=== PATIENT | male | born 1985 | race Caucasian/White ===

== ENCOUNTER 2024-07-06 09:43 | Outpatient (OUT) | payer MEDICARE, MEDICAID, SELFPAY ==
[2024-07-06 10:14] LABS: Basophils Absolute Auto 0.1 10^3/uL (0.0-0.1); Basophils Percent Auto 0.6 % (0.2-2.0); Eosinophils Absolute Auto 0.2 10^3/uL (0.0-0.7); Eosinophils Percent Auto 2.5 % (0.9-7.0); Hematocrit 50.7 % (42.0-54.0); Hemoglobin 18.1 g/dL (14.0-18.0); Immature Granulocytes Abs Auto 0.03 10^3/uL (0.00-0.03); Immature Granulocytes Pct Auto 0.4 % (0.0-0.5); Lymphocytes Absolute Auto 2.1 10^3/uL (1.2-3.8); Lymphocytes Percent Auto 26.8 % (20.5-60.0); Mean Corpuscular HGB Conc 35.7 g/dL (29.9-35.2); Mean Corpuscular Hemoglobin 31.3 pg (25.9-34.0); Mean Corpuscular Volume 87.6 fL (80.0-94.0); Mean Platelet Volume 11.5 fL (9.5-13.5); Monocytes Absolute Auto 0.7 10^3/uL (0.3-0.8); Monocytes Percent Auto 8.5 % (1.7-12.0); Neutrophils Absolute Auto 4.7 10^3/uL (1.4-6.5); Neutrophils Percent Auto 61.2 % (43.0-75.0); Platelet Count 231 10^3/uL (150-450); Red Blood Count 5.79 10^6/uL (4.70-6.10); Red Cell Distribution Width 12.4 % (11.0-15.0); White Blood Count 7.7 10^3/uL (4.0-11.0)
[2024-07-06 10:20] LABS: Bilirubin Urine NEGATIVE (NEGATIVE); Blood Urine NEGATIVE (NEGATIVE); Clarity Urine CLEAR (CLEAR); Color Urine LT. YELLOW (YELLOW); Glucose Urine UA >=1000 mg/dL (NEGATIVE); Ketones Urine TRACE mg/dL (NEGATIVE); Leukocyte Esterase Urine NEGATIVE (NEGATIVE); Nitrite Urine NEGATIVE (NEGATIVE); Protein Urine NEGATIVE (NEG/TRACE); Specific Gravity Urine <=1.005 (1.005-1.025); Urine Microscopic Indicated NO; Urobilinogen Urine 0.2 EU/dL (0.2-1.0); pH Urine 6.5 (5.0-9.0)
[2024-07-06 10:38] LABS: Creatinine Urine Random 56.89 mg/dL (20.00-300.00); Microalbum Creatinine Ratio Ur 133.5 mg/g (0.0-29.9); Microalbumin Urine Random 7.6 mg/dL (<=30.0)
[2024-07-07 10:44] LABS: Estimated Average Glucose >355 mg/dL; Glycohemoglobin A1C >14.0 % (4.5-6.2)
[2024-07-07 10:49] LABS: Anion Gap 12.4; BUN Creatinine Ratio 14.8; Bilirubin Total 0.7 mg/dL (0.2-1.0); Carbon Dioxide 26.4 mmol/L (21.0-32.0); Chloride 95 mmol/L (98-107); Estimated GFR (African America >60 (>=60); Estimated GFR (Non-African Ame >60 (>=60); Glucose 352 mg/dL (74-106); Potassium 3.8 mmol/L (3.5-5.1); Sodium 130 mmol/L (136-145)
[2024-07-07 10:50] LABS: Alanine Aminotransferase 71 U/L (16-63); Albumin Globulin Ratio 0.8; Albumin Level 3.4 g/dL (3.4-5.0); Alkaline Phosphatase 83 U/L (46-116); Aspartate Amino Transferase 27 U/L (15-37); Globulin 4.1 g/dL; Total Protein 7.5 g/dL (6.4-8.2)
== END 2024-07-06 09:44 | disposition home or self-care (01) ==
LOC: LAB 09:50
PROVIDERS: PCP Nurse Practitioner; Visit Provider Nurse Practitioner
DX: G47.33 Obstructive sleep apnea (adult) (pediatric) (principal); J45.40 Moderate persistent asthma, uncomplicated; R53.83 Other fatigue; I10 Essential (primary) hypertension; E11.9 Type 2 diabetes mellitus without complications; E78.1 Pure hyperglyceridemia
CPT/HCPCS: 36415; 80053; 81003; 82043; 82570; 83036; 84443; 85025

== ENCOUNTER 2024-12-25 11:12 | Outpatient (OUT) | payer MEDICARE, MEDICAID, SELFPAY ==
[2024-12-25 12:15] LABS: Alanine Aminotransferase 93 U/L (16-63); Albumin Globulin Ratio 0.9; Albumin Level 3.6 g/dL (3.4-5.0); Alkaline Phosphatase 73 U/L (46-116); Anion Gap 16.1; Aspartate Amino Transferase 45 U/L (15-37); BUN Creatinine Ratio 13.3; Bilirubin Total 0.8 mg/dL (0.2-1.0); Calcium 9.2 mg/dL (8.5-10.1); Carbon Dioxide 24.1 mmol/L (21.0-32.0); Chloride 101 mmol/L (98-107); Chol HDL Ratio 5.7; Cholesterol 222 mg/dL (<=200); Estimated GFR (African America >60 (>=60 mL/min/1.73m^2); Estimated GFR (Non-African Ame >60 (>=60 mL/min/1.73m^2); Globulin 4.1 g/dL; Glucose 144 mg/dL (74-106); HDL Cholesterol 39 mg/dL (40-60); Potassium 4.2 mmol/L (3.5-5.1); Sodium 137 mmol/L (136-145); Total Protein 7.7 g/dL (6.4-8.2); Triglycerides 830 mg/dL (<=150)
[2024-12-25 13:42] LABS: LDL Cholesterol Direct 71 mg/dL
== END 2024-12-25 11:13 | disposition home or self-care (01) ==
PROVIDERS: PCP Nurse Practitioner; Visit Provider Nurse Practitioner
DX: E78.1 Pure hyperglyceridemia (principal); E11.9 Type 2 diabetes mellitus without complications; I10 Essential (primary) hypertension
CPT/HCPCS: 36415; 80053; 80061; 83721

== ENCOUNTER 2025-10-18 09:29 | Outpatient (OUT) | payer MEDICARE, MEDICAID, SELFPAY ==
--- OUTSIDE RECORDS SUMMARY | 2025-10-18 09:35 | XMS_ITS | Clinical Summary ---
Author Organization [facility] Address [address] [place] [address] Care Team Providers Care Nuclear Weapons Specialist Name Role Phone Radha Rimma HUNTLEY Unavailable [phone] Anand Paul MD Primary Care Provider [phone] Allergies No known active allergies Medications MedicationSigDispense QuantityRefillsLast FilledStart DateEnd DateStatus albuterol HFA 90 mcg/act inhaler Indications:Mild persistent asthma without complication (HCC)Inhale 2 puffs every 6 (six) hours if needed for wheezing 8.5 g 5Active amLODIPine (Norvasc) 5 MG tablet Indications:Primary hypertensionTake 1 tablet (5 mg) by mouth Daily 90 tablet 5Active atomoxetine (Strattera) 40 MG capsule Indications:Attention deficit hyperactivity disorder (ADHD), predominantly inattentive typeTake 1 capsule (40 mg) by mouth Daily Swallow capsule whole; do not open. If opened accidentally, do not touch eyes; wash hands immediately (product is an eye irritant). 30 capsule 5Active atorvastatin (Lipitor) 80 MG tablet Indications:HypertriglyceridemiaTake 1 tablet (80 mg) by mouth in the evening 30 tablet 5Active dapagliflozin (Farxiga) 10 MG Indications:Type 2 diabetes mellitus without complications (HCC)Take 1 tablet (10 mg) by mouth Daily 90 tablet 5Active fenofibrate micronized (Lofibra) 134 MG capsule Indications:HypertriglyceridemiaTake 1 capsule (134 mg) by mouth Daily 90 capsule 5Active lisinopril 40 MG tablet Indications:Primary hypertensionTake 1 tablet (40 mg) by mouth Daily 90 tablet 5Active semaglutide (Rybelsus) 14 MG tablet Indications:Type 2 diabetes mellitus without complications (HCC)Take 1 tablet (14 mg) by mouth in the morning. Take before meals. 90 tablet 5Active Active Problems ProblemNoted DateDiagnosed DateMorbid (severe) obesity due to excess calories 06/29/2024 Assessment & Plan (12/01/2024 7:55 AM EST): Discussed with patient their BMI (actual, verses recommended). We have also discussed lifestyle modifications: attempts to perform physical activity as chronic conditions allow, also to monitor dietary intake: increasing protein/fruits/veggies and lowering carb intake (unless contraindicated). Limit sodas, juices, and sugary drinks. Type 2 diabetes mellitus without ddaxxzlkcgpfx25/05/2024 Assessment & Plan (12/01/2024 4:53 PM EST): Check blood sugars daily, notify if <70 or >200. Take medications (pills or insulin) as directed. Monitor for s/s of hypoglycemia (sweaty, dizziness, nausea, vomiting, or shakiness). Watch for increase in thirst, urination, or appetite. Inspect feet frequently monitoring for open wounds , andalso recommend yearly eye exam. Pt should attempt to remain as physically active as chronic conditions allow, as well as trying to follow a diet low in carbohydrates, and simple sugars. Current meds: statin, edilia, farxiga, and rybelsus Increase farxiga to 10mg and rybelsus to 14mg A1c: 10% 12/01/24 Assessment & Plan (06/29/2024 5:21 PM EDT): Check labs Is currently not taking any metfromin?? Recommend carb control as well as weight loss and physical activity Assessment & Plan (03/25/2024 3:17 PM EDT): Currently not taking any meds, metfromin caused severe muscle aches, fatigue Stopped once he stopped the med Obstructive sleep apnea (adult) (pediatric)03/25/2024 Assessment & Plan (12/01/2024 4:52 PM EST): You have a diagnosis of obstructive sleep apnea. It is recommended that you wear your PAP device any time while in bed sleeping. Not using the PAP device can increase your risk of elevated/uncontrolled high blood pressure, atrial fibrillation, heart attack, stroke, or sudden . Compliance with PAP: yes How many hours of use per night: 6-7 hours Do you feel more refreshed in the morning: yes Company that supplies your machine and tubing/filters etc:in [place] Doctor that manages your [employer]: Rimma Assessment & Plan (06/29/2024 4:02 PM EDT): Compliant with PAP use Typically hours per night Assessment & Plan (03/25/2024 3:17 PM EDT): Compliant with meds Other whjoeba5003/25/2024Encounter for initial annual wellness visit (AWV) in Medicare eufnqxm9503/25/2024 Assessment & Plan (03/25/2024 3:10 PM EDT): Reviewed Ht/Wt/BMI Recommend eye exam yearly Recommend dental exams twice a year Exercises is recommended most days of the week (appropriate as chronic conditions allow) Follow up yearly and prn Body mass index (BMI) 39.0-39.9, adult03/25/20240790Ehkxwlveycbyegnpqoti55/01/2024 Assessment & Plan (12/01/2024 7:56 AM EST): Current meds: statin, lofibra Check labs yearly and prn dose changes Assessment & Plan (03/25/2024 3:16 PM EDT): Continue current meds Attention deficit hyperactivity disorder (ADHD), predominantly inattentive type 01/07/2024 Overview (12/01/2024): Med agreement signed 03/25/2024 12/01/24: NALINI =9, PHQ =10 Assessment & Plan (12/01/2024 4:54 PM EST): Current meds: niall, will continue to use this in conjunction with his chronic health conditions PHQ 9= 10 NALINI 7 =9 Assessment & Plan (06/29/2024 5:22 PM EDT): Has taken ADHD meds for years, trial off of them in the last 2 years, significant worsening in symptoms We will continue on med Needs a PA for his adderall XR as insurance is wanting a new PA Fu in 3 months Assessment & Plan (03/25/2024 3:16 PM EDT): Has taken ADHD meds for years, trial off of them in the last 2 years, significant worsening in symptoms We will continue on med OARRS reviewed Med agreement signed Fu in 3 months Essential (primary) ygpxxuxxqaaf53/19/2024 Assessment & Plan (12/01/2024 7:54 AM EST): Please check blood pressure daily and record DASH diet Limit caffeine Take medication as directed Contact office if chest pain, pressure, dizziness, shortness of breath, swelling legs Recommend slow position changes Current med: amlodipine, lisinopril Assessment & Plan (06/29/2024 5:19 PM EDT): At goal, no changes in med dose for pt Cont PAP use, as well as recommend weight loss Over due for labs Assessment & Plan (03/25/2024 3:17 PM EDT): No change in meds Check labs Moderate persistent asthma without oqmuanftmixa32/19/2024 Assessment & Plan (12/01/2024 7:57 AM EST): Albuterol inhaler as needed Resolved Problems ProblemNoted DateDiagnosed DateResolved DateMild persistent asthma without lzkwavinqbgj68 Assessment & Plan (06/29/2024 5:18 PM EDT): Continue prn use of albuterol And avoidance of known triggers Social History Tobacco UseTypesPacks/DayYears UsedDateSmoking Tobacco: NeverSmokeless Tobacco: Never Tobacco Cessation:Counseling Given: Not Answered Alcohol UseStandard Drinks/WeekCommentsNot Currently0 (1 standard drink = 0.6 oz pure alcohol)caffine: tea daily and soda 1 weeklyPHQ-2AnswerDate RecordedPatient Health Questionnaire-2 [id number] and Gender InformationValueDate RecordedSex Assigned at BirthNot on fileLegal UduFukv0005/15/2023 2:05 PM EDT Gender IdentityNot on fileSexual OrientationNot on file Last Filed Vital Signs Vital SignReadingTime TakenCommentsBlood Nrezvzml717/8812/01/2024 3:09 PM EST Pvtcc282912/01/2024 3:09 PM VFHEzpbmdyhwoz47.1 ??C (98.8 ??F)12/01/2024 3:09 PM ESTRespiratory Iceq144312/01/2024 3:09 PM ESTOxygen Tcofmvsmps56%12/01/2024 3:09 PM ESTInhaled Oxygen Concentration--Livras191 kg (259 lb)12/01/2024 3:09 PM EST Hhqygh302.6 cm (5' 6 )06/29/2024 3:27 PM EDTBody Mass Index41.809 3:27 PM EDT Plan of Treatment Not on file Insurance Care Teams Team MemberRelationshipSpecialtyStart DateEnd Date Anand Paul MD [facility] Rimma Garcia NP Referring PhysicianNurse Practitioner05/15/23
--- OUTSIDE RECORDS SUMMARY | 2025-10-18 09:36 | XMS_ITS | CCD ---
Author Organization [facility] Care Team Providers Care Scenery Builder Name Role Phone AICHHOLZ, YARN EXAMINER SKEINS RIMMA Admitting Unavailable AICHHOLZ, YARN EXAMINER SKEINS RIMMA Attending Unavailable AICHHOLZ, YARN EXAMINER SKEINS RIMMA Primary Care Unavailable AICHHOLZ, YARN EXAMINER SKEINS RIMMA Consulting Unavailable AICHHOLZ, YARN EXAMINER SKEINS RIMMA Admitting Unavailable AICHHOLZ, YARN EXAMINER SKEINS RIMMA Attending Unavailable AICHHOLZ, YARN EXAMINER SKEINS RIMMA Primary Care Unavailable AICHHOLZ, YARN EXAMINER SKEINS RIMMA Consulting Unavailable Aichholz TURN SEWER, Rimma Unavailable Anand Paul MD Primary Care Provider [phone] AICHHOLZ, RIMMA Attending Unavailable AICHHOLZ, RIMMA Attending Unavailable AICHHOLZ, RIMMA Attending Unavailable Medications Current Medications MedicationDrug Class(es)DatesSig (Normalized)Sig (Original)[id number] 200 actuat albuterol 0.09 mg/actuat metered dose inhaler (17 sources)beta2-Adrenergic AgonistStart: 11-25-2023 End: 22-24-9282obow 2 puff(s) by inhalation every six hours for wheezing albuterol HFA 90 mcg/act inhaler Indications: Mild persistent asthma without complication (HCC) Inhale 2 puffs every 6 (six) hours if needed for wheezing 8.5 g 1 04/20/2025 05/20/2025 ActiveamLODIPine 5 mg oral tablet (19 sources)Dihydropyridine Calcium Channel BlockerStart: 03-25-2024 End: 78-25-6909vnqm 1 tablet by mouth once dailyamLODIPine (Norvasc) 5 MG tablet Indications: Primary hypertension Take 1 tablet (5 mg) by mouth Daily 90 tablet 04/20/2025 07/19/2025 Activeaspirin 81 mg delayed release oral tablet (3 sources)Platelet Aggregation Inhibitor, Nonsteroidal Anti-inflammatory Drug Start: 12-01-2024 End: 77-06-4424owpd 1 tablet by mouth once dailyaspirin 81 MG EC tablet Indications: Essential (primary) hypertension (CMS/HCC) , Type 2 diabetes me llitus without complications (CMS/HCC) Take 1 tablet (81 mg) by mouth Daily 30 tablet 11 Activeatomoxetine 40 mg oral capsule (10 sources)Norepinephrine Reuptake InhibitorStart: 07-27-2024 End: 82-72-0131eqpv 1 capsule by mouth once dailyatomoxetine (Strattera) 40 MG capsule Indications: Attention deficit hyperactivity disorder (ADHD), predominantly inattentive type Take 1 capsule (40 mg) by mouth Daily Swallow capsule whole; do not open. If opened accidentally, do not touch eyes; wash hands immediately (product is an eye irritant). 30 capsule 1 04/20/2025 05/20/2025 Activeatorvastatin 80 mg oral tablet (19 sources)HMG-CoA Reductase InhibitorStart: 03-02-2025 End: 14-58-9743wxod 1 tablet by mouth in the eveningatorvastatin (Lipitor) 80 MG tablet Indications: Hypertriglyceridemia Take 1 tablet (80 mg) by mouth in the evening 30 tablet 2 04/20/2025 05/20/2025 ActiveStart: 03-25-2024 End: 39-81-8528nngd 1 tablet by mouth in the eveningatorvastatin (Lipitor) 10 MG tablet Indications: Hypertriglyceridemia (CMS/HCC) Take 1 tablet (10 mg) by mouth in the evening 90 tablet 1 12/01/2024 03/01/2025 Activedapagliflozin 10 mg oral tablet (13 sources)Sodium-Glucose Cotransporter 2 InhibitorStart: 12-01-2024 End: 53-54-3932bznf 1 tablet by mouth once dailydapagliflozin (Farxiga) 10 MG Indications: Type 2 diabetes mellitus without complications (HCC) Take 1 tablet (10 mg) by mouth Daily 90 tablet 04/20/2025 07/19/2025 ActiveStart: 07-07-2024 End: 43-41-0789qkbk 1 tablet by mouth once dailydapagliflozin (Farxiga) 5 MG Indications: Type 2 diabetes mellitus without complication, without long-term current use of insulin (CMS/HCC) Take 1 tablet (5 mg) by mouth Daily 30 tablet 11 Discontinued (Therapy completed)fenofibrate 134 mg oral capsule (19 sources)Peroxisome Proliferator Receptor alpha AgonistStart: 03-25-2024 End: 85-10-4546eocm 1 capsule by mouth once dailyfenofibrate micronized (Lofibra) 134 MG capsule Indications: Hypertriglyceridemia Take 1 capsule (134 mg) by mouth Daily 90 capsule 04/20/2025 07/19/2025 Activelisinopril 40 mg oral tablet (19 sources)Angiotensin Converting Enzyme InhibitorStart: 03-25-2024 End: 88-62-2758upfp 1 tablet by mouth once dailylisinopril 40 MG tablet Indications: Primary hypertension Take 1 tablet (40 mg) by mouth Daily 90 tablet 1 04/20/2025 07/19/2025 ActivemetFORMIN hydrochloride 500 mg oral tablet (2 sources)BiguanideStart: 07-07-2024 End: 82-02-3246qmtCFFIQF (Glucophage) 500 MG tablet Indications: Type 2 diabetes mellitus without complication, without long-term current use of insulin (CMS/HCC) Start with 1 pill daily for 5 days, then 1 pill twice a day for 5 days, then 2 pills am and 1 with supper for 7 days then 2 pills with breakfast and supper 120 tablet 1 07/07/2024 07/07/2024 Discontinued (Side effects) semaglutide 14 mg oral tablet (15 sources)Start: 12-01-2024 End: 42-09-7049bqjy 1 tablet by mouth before mealtimesemaglutide (Rybelsus) 14 MG tablet Indications: Type 2 diabetes mellitus without complications (HCC) Take 1 tablet (14 mg) by mouth in the morning. Take before meals. 90 tablet 04/20/2025 5ActiveStart: 08-13-2024 End: 88-42-4325erzf 1 tablet by mouth before mealtimesemaglutide (Rybelsus) 7 MG tablet Indications: Type 2 diabetes mellitus without complication, without long- term current use of insulin (CMS/HCC) Take 1 tablet (7 mg) by mouth in the morning. Take before meals. 30 tablet 1 08/13/2024 12/01/2024 Discontinued (Ineffective)Start: 07-07-2024 End: 94-85-6746hzfs 1 tablet by mouth before mealtimesemaglutide (Rybelsus) 3 MG tablet Indications: Type 2 diabetes mellitus without complication, without long- term current use of insulin (CMS/HCC) Take 1 tablet (3 mg) by mouth in the morning. Take before meals. 30 tablet 07/07/2024 08/13/2024 Discontinued (Therapy completed) Completed/Discontinued Medications MedicationDrug Class(es)DatesSig (Normalized)Sig (Original)24 hr amphetamine aspartate 7.5 mg / amphetamine sulfate 7.5 mg / dextroamphetamine saccharate 7.5 mg / dextroamphetamine sulfate 7.5 mg extended release oral capsule (13 sources)Central Nervous System StimulantStart: 04-24-2024 End: 27-06-7332nkhi 1 capsule by mouth once dailyamphetamine-dextroamphetamine XR (Adderall XR) 30 MG 24 hr capsule Indications: Attention deficit hy peractivity disorder (ADHD), predominantly inattentive type (CMS/HCC) Take 1 capsule (30 mg) by mouth Daily Do not crush or chew. 30 capsule 06/08/2024 06/29/2024 Discontinued (Reorder)Start: 03-25-2024 End: 70-41-8714fkqx 1 capsule by mouth every twenty-four hours in the morning amphetamine-dextroamphetamine XR (Adderall XR) 30 MG 24 hr capsule Indications: Attention deficit hyperactivity disorder (ADHD), predominantly inattentive type (CMS/HCC) Take 1 capsule (30 mg) by mouth in the morning. Do not crush or chew.. 30 capsule 03/25/2024 06/08/2024 Discontinued (Therapy completed) Problems Active Problems Problem ClassificationProblemDateDocumented DateEpisodic/ChronicAsthma (20 sources)Uncomplicated mild persistent asthma; Translations: [Mild persistent asthma, uncomplicated]Onset: 10-01-2023 Resolved: [id number]-bdbgstf, conduct, and disruptive behavior disorders (20 sources)Attention deficit hyperactivity disorder, predominantly inattentive type; Translations: [Attention-deficit hyperactivity disorder, predominantly inattentive type]Onset: 409482-01-5176IqsbexxTqdbgpyb mellitus without complication (20 sources)Type 2 diabetes mellitus without complication; Translations: [Type 2 diabetes mellitus without complications]Onset: [id number] Disorders of lipid metabolism (20 sources)Hypertriglyceridemia; Translations: [Pure hyperglyceridemia]Onset: 235812-94-7106YqfsduzTawtzxnrc hypertension (20 sources)Essential hypertension; Translations: [Essential (primary) hypertension]Onset: 691290-35-9391JhkdavsJhdnz nutritional; endocrine; and metabolic disorders (18 sources)Body mass index 30+ - obesity; Translations: [Body mass index (BMI) 39.0-39.9, adult]Onset: 749385-17-2931RnujpbuPnsft nutritional; endocrine; and metabolic disorders (17 sources)Obesity caused by energy imbalance; Translations: [Morbid (severe) obesity due to excess calories]Onset: 356723-81-0296IsukcpgFeelyzeq codes; unclassified (18 sources)Obstructive sleep apnea syndrome; Translations: [Obstructive sleep apnea (adult) (pediatric)]Onset: hronic Past or Other Problems Problem ClassificationProblemDateDocumented DateEpisodic/ChronicMalaise and fatigue (14 sources)Fatigue; Translations: [Other fatigue]Onset: EpisodicMood disorders (14 sources)Mood disordersOnset: Results Test NameValueInterpretationReference JzlplEiqccdzwSpR7c (Bld) [Mass fraction]on 69-20-6208Frojiugvjrfrit and review of laboratory resultsAbnormalNOMS Healthcare NOMS HealthcareLaboratory - Hematology and Cell countson 05-51-3407UpT6n (Bld) [Mass fraction]10 %NOMS HealthcareALL CBC WITH AUTO DIFFon 09-57-3421JTSMDYNYW ABSOLUTE AUTO0.1NOMS HealthcareBasophils/100 WBC (Bld)0.6 %0.2 - 2.0 %NOMS HealthcareEosinophils/100 WBC (Bld)2.5 %0.9 - 7.0 %NOMS HealthcareErythrocyte distribution width (RBC) [Ratio]12.4 %11.0 - 15.0 %NOMS HealthcareHematocrit (Bld) [Volume fraction]50.7 %42.0 - 54.0 %[facility] CenterHemoglobin (Bld) [Mass/Vol]18.1 g/eVTdvi10.0 - 18.0 g/dLSaint John's Regional Health CenterIMMATURE GRANULOCYTES ABS AUTO0.03NOSt. Louis Children's HospitalImmature granulocytes/100 WBC (Bld)0.4 %0.0 - 0.5 %[facility] CenterInterpretation and review of laboratory resultsAbnormalSaint [facility]'s [facility] LYMPHOCYTES ABSOLUTE AUTO2.1NOMS [facility] CenterLymphocytes/100 WBC (Bld)26.8 %20.5 - 60.0 %[facility] HospitalH (RBC) [Entitic mass]31.3 pg25.9 - 34.0 pgSaint Luke's HospitalHC (RBC) [Mass/Vol]35.7 g/rLJifd59.9 - 35.2 g/dLSaint Luke's HospitalV (RBC) [Entitic vol]87.6 fL80.0 - 94.0 fLSaint John's Regional Health CenterMONOCYTES ABSOLUTE AUTO 0.7NOAK HealthcareMonocytes/100 WBC (Bld)8.5 %1.7 - 12.0 %[facility] NEUTROPHILS ABSOLUTE AUTO4.7NOSt. Louis Children's HospitalNeutrophils/100 WBC (Bld)61.2 %43.0 - 75.0 %[facility] CenterPlatelet mean volume (Bld) [Entitic vol]11.5 fL9.5 - 13.5 fLSaint John's Regional Health CenterTB EO #0.2NOMS [facility] CenterTB [id number] [facility] West RBC5.79 [facility] CenterTB WBC7.7NOSt. Louis Children's HospitalCLINISYNCNUniversity Health Lakewood Medical CenterCBC AUTO DIFFon 34-07-3995RPAH #0.1 103/ulNormal0.0-0.1The The [facility] HospitalComment on above: Performed By: #### CBC #### [facility] [address] [address] [address] Aury Thapasophils/100 WBC (Bld)0.5 %Normal0.2-2.0The [facility] Comment on above:Performed By: #### CBC #### [facility] [address] [address] [address] Yilan ChangEO #0.3 103/ulNormal0.0-0.7The [facility] HospitalComment on above: Performed By: #### CBC #### [facility] [address] [place] [address] Dr. Aury Klineosinophils/100 WBC (Bld)2.9 %Normal0.9-7.0The [facility] Comment on above:Performed By: #### CBC #### [facility] [address] [place] [address] Dr. Aury Klinerythrocyte distribution width (RBC) [Ratio]13.1 %Flymnt93.0-15.0 The The [facility] HospitalComment on above:Performed By: #### CBC #### [facility] [address] [place] [address] Dr. Aury VazquezHematocrit (Bld) [Volume fraction]50.5 %Nzbuty56.0-54.0The [facility] HospitalComment on above:Performed By: #### CBC #### [facility] [address] [place] [address] Dr. Aury VazquezHemoglobin (Bld) [Mass/Vol]17.1 g/bRIuzptf59.0-18.0The [facility] HospitalComment on above:Performed By: #### CBC #### [facility] [address] [place] [address] Dr. Aury Francois #0.09 10e3/ulCritically high0.00-0.03The [facility] Comment on above:Performed By: #### CBC #### [facility] [address] [place] [address] Dr. Aury Francois %0.9 %Critically high0.0-0.5The [facility] HospitalComment on above:Performed By: #### CBC #### [facility] [address] [place] [address] Dr. Aury Adams #2.4 103/ulNormal1.2-3.8The [facility] HospitalComment on above:Performed By: #### CBC #### [facility] [address] [place] [address] Dr. Aury Francesmphocytes/100 WBC (Bld)24.4 %Pdlymy25.5-60.0The [facility] HospitalComment on above:Performed By: #### CBC #### [facility] [address] [place] [address] Dr. Aury Portillo DIFF REQNONormalThe [facility] HospitalComment on above: Performed By: #### CBC #### [facility] [address] [place] [address] Dr. Aury Rojas (RBC) [Entitic mass]30.5 jeXrtqji08.9-34.0The [facility] HospitalComment on above:Performed By: #### CBC #### [facility] [address] [place] [address] Dr. Aury Rojas (RBC) [Mass/Vol]33.9 g/gTCqtuwn70.9-35.2The [facility] HospitalComment on above:Performed By: #### CBC #### [facility] [address] [place] [address] Dr. Aury Rojas (RBC) [Entitic vol]90.2 pFNajcnn94.0-94.0The [facility] HospitalComment on above:Performed By: #### CBC #### [facility] [address] [place] [address] Dr. Aury Tong #0.9 103/ulCritically high0.3-0.8The [facility] Comment on above:Performed By: #### CBC #### [facility] [address] [place] [address] Dr. Aury Ribeiroocytes/100 WBC (Bld)9.5 %Normal1.7-12.0[facility] Comment on above:Performed By: #### CBC #### [facility] [address] [place] [address] Dr. Aury Martinez #6.0 103/ulNormal1.4-6.5The [facility] HospitalComment on above:Performed By: #### CBC #### [facility] [address] [place] [address] Dr. Aury Connorutrophils/100 WBC (Bld)61.8 %Welkvm94.0-75.0The [facility] HospitalComment on above:Performed By: #### CBC #### [facility] [address] [address] [address] Aury VazquezPlatelet mean volume (Bld) [Entitic vol]10.6 fLNormal9.5-13.5The [facility] HospitalComment on above:Performed By: #### CBC #### [facility] [address] [address] [address] Aury VazquezPLT278 103/wcVygkic397-140Nue The [facility] HospitalComselect specialty hospital on above: Performed By: #### CBC #### [facility] [address] [place] [address] Dr. Aury VazquezRBC5.60 106/ulNormal4.70-6.10The [facility] HospitalComment on above:Performed By: #### CBC #### [facility] [address] [place] [address] Dr. Aury VazquezWBC9.7 103/ulNormal4.0-11.0The [facility] HospitalComment on above: Performed By: #### CBC #### [facility] [address] [place] [address] Dr. Aury VazquezGLYCOHEMOGLOBIN A1Con 75-97-0112XEB RECOMMENDATIONSEE BELOWNormal The [facility] HospitalComselect specialty hospital on above:Result Comment: ADA RECOMMENDED LIMIT 4.0 - 6.0 ADA THERAPEUTIC TARGET < 7.0 ACTION SUGGESTED > 7.0Performed By: #### A1C #### [facility] [address] [place] [address] Dr. Aury VazquezGlucose [Mass/Vol]180 mg/dLNormalThMagruder Memorial HospitalComselect specialty hospital on above:Performed By: #### A1C #### [facility] [address] [place] [address] Dr. Aury VazquezHbA1c (Bld) [Mass fraction]7.9 %Critically high4.5-6.2The [facility] HospitalComment on above:Performed By: #### A1C #### [facility] [address] [address] [address] Aury DeeID PROFILEon 01-09-1472MUKZ-HDL RATIO NORMSMercy Health Willard HospitalComment on above:Result Comment: 3.3 - 4.4 LOW RISK 4.4 - 7.1 AVERAGE RISK 7.1 - 11.0 MODERATE RISK >11.0 HIGH RISKPerformed By: #### CMP, LIPID #### [facility] [address] [address] [address] Aury VazquezCholesterol [Mass/Vol]150 mg/dLNormal<=200[facility] Comment on above:Performed By: #### CMP, LIPID #### [facility] [address] [address] [address] Aury VazquezCholesterol in HDL [Mass/Vol]35 mg/dLCritically hwa00-06Aep [facility] HospitalComment on above:Performed By: #### CMP, LIPID #### [facility] [address] [address] [address] Aury VazquezCholesterol in LDL [Mass/Vol]73.0 mg/dLMercy Health St. Joseph Warren HospitalComselect specialty hospital on above:Performed By: #### CMP, LIPID #### [facility] [address] [address] [address] Aury VazquezCholesterjoel.total/Cholesterol in HDL [Mass ratio]4.3 {ratio} NormalCincinnati Children'S Hospital Medical CenterComment on above:Performed By: #### CMP, LIPID #### [facility] [address] [address] [address] Aury VazquezHDL NORMAL> or = 60 mg/dl - LOW CARDIOVASCULAR RISK <40 mg/dl - HIGH CARDIOVASCULAR RISKMercy Health St. Joseph Warren HospitalComselect specialty hospital on above:Performed By: #### CMP, LIPID #### [facility] [address] [address] [address] Aury VazquezLDL CALC NORMALSEE [facility] HospitalComment on above:Result Comment: <100 mg/dl OPTIMAL 100 - 129 mg/dl NEAR OR ABOVE OPTIMAL 130 - 159 mg/dl BORDERLINE HIGH 160 - 189 mg/dl HIGH >190 mg/dl VERY HIGH Performed By: #### CMP, LIPID #### [facility] [address] [place] [address] Dr. Aury VazquezTriglyceride [Mass/Vol]210 mg/dLCritically high<=150The [facility] HospitalComment on above:Performed By: #### CMP, LIPID #### [facility] [address] [place] [address] Dr. Aury VazquezVLDL CALC42.0 mg/dLNormalThe [facility] HospitalComment on above: Performed By: #### CMP, LIPID #### [facility] [address] [place] [address] Dr. Aury VazquezPROAdiel 14(COMP METB)on 33-84-0470Arrepgx [Mass/Vol]3.5 g/dLNormal 3.4-5.0The [facility] HospitalComment on above:Performed By: #### CMP, LIPID #### [facility] [address] [place] [address] Dr. Aury VazquezAlbumin/Globulin [Mass ratio]0.9 {ratio}NormalThe [facility] HospitalComment on above:Performed By: #### CMP, LIPID #### [facility] [address] [place] [address] Dr. Aury Solis [Catalytic activity/Vol]75 U/BIabchc51-967Smg [facility] HospitalComment on above:Performed By: #### CMP, LIPID #### [facility] [address] [place] [address] Dr. Aury River [Catalytic activity/Vol]102 U/LCritically ktui09-99Arv [facility] HospitalComment on above:Performed By: #### CMP, LIPID #### [facility] [address] [place] [address] Dr. Aury Nguyen gap [Moles/Vol]14.2 mmol/LNormalThe [facility] Comment on above:Performed By: #### CMP, LIPID #### [facility] [address] [place] [address] Dr. Aury VazquezAST [Catalytic activity/Vol]56 U/LCritically qbms03-32Dtv [facility] Hospitalment on above:Performed By: #### CMP, LIPID #### [facility] [address] [address] [address] Aury VazquezBilirubin [Mass/Vol]0.5 mg/dLNormal0.2-1.0The [facility] Comment on above:Performed By: #### CMP, LIPID #### [facility] [address] [address] [address] Aury VazquezCalcium [Mass/Vol]8.7 mg/dLNormal8.5-10.1The [facility] Comment on above:Performed By: #### CMP, LIPID #### [facility] [address] [place] [address] Dr. Aury VazquezChloride [Moles/Vol]105 mmol/TJfxwoi11-793Jov [facility] Comment on above:Performed By: #### CMP, LIPID #### [facility] [address] [place] [address] Dr. Aury VazquezCO2 [Moles/Vol]23.2 mmol/MStqaxp46.0-32.0The [facility] Comment on above:Performed By: #### CMP, LIPID #### [facility] [address] [place] [address] Dr. Aury VazquezCreatinine [Mass/Vol]1.08 mg/dLNormal0.70-1.30The [facility] HospitalComment on above:Performed By: #### CMP, LIPID #### [facility] [address] [place] [address] Dr. Aury KlineGFR-AF BURMESE>60Normal>=60The [facility] HospitalComment on above:Performed By: #### CMP, LIPID #### [facility] [address] [place] [address] Dr. Aury KlineGFR-NON AF BURMESE>60Normal>=60The [facility] HospitalComment on above:Performed By: #### CMP, LIPID #### [facility] [address] [place], [place] [id number] Dr. Aury VazquezGlobulin (S) [Mass/Vol]4.1 g/dLNormDayton VA Medical CenterComment on above:Performed By: #### CMP, LIPID #### [facility] [address] [place] [address] Dr. Aury VazquezGlucose [Mass/Vol]136 mg/dLCritically plmo18-028Lro [facility] HospitalComment on above:Performed By: #### CMP, LIPID #### [facility] [address] [place] [address] Dr. Aury VazquezPotassium [Moles/Vol]4.4 mmol/LNormal3.5-5.1The [facility] Comment on above:Performed By: #### CMP, LIPID #### [facility] [address] [place] [address] Dr. Aury VazquezProtein [Mass/Vol]7.6 g/dLNormal6.4-8.2The [facility] Comment on above:Performed By: #### CMP, LIPID #### [facility] [address] [place] [address] Dr. Aury VazquezSodium [Moles/Vol]138 mmol/MMblkxt173-290Nvh [facility] Comment on above:Performed By: #### CMP, LIPID #### [facility] [address] [place] [address] Dr. Aury VazquezUrea nitrogen [Mass/Vol]17.0 mg/dLNormal7.0-18.0The [facility] HospitalComment on above:Performed By: #### CMP, LIPID #### [facility] [address] [place] [address] Dr. Aury VazquezUrea nitrogen/Creatinine [Mass ratio]15.7 mg/mgNoOhio State Harding HospitalComment on above:Performed By: #### CMP, LIPID #### [facility] [address] [place] [address] Dr. Aury VazquezUA RANDOM W/MICROSCOPICon 78-88-0924XSTARHQAXXER SEENNormalNONE SEENCincinnati Children'S Hospital Medical CenterComment on above:Performed By: #### UAMIC #### [facility] [address] [address] [address] Aury VazquezBilirubin Ql (U)NegativeNormalNEGATIVECincinnati Children'S Hospital Medical Center Comment on above:Performed By: #### UAMIC #### [facility] [address] [address] [address] Aury VazquezCASTNONConrad SEENNormalNONE SEENCincinnati Children'S Hospital Medical CenterComment on above:Performed By: #### UAMIC #### [facility] [address] [address] [address] Auyr VazquezClarity (U)CLEARNormalCLEARCincinnati Children'S Hospital Medical CenterComment on above: Performed By: #### UAMIC #### [facility] [address] [address] [address] Aury Carrillolor (U)YELLOWNormalYELLOWCincinnati Children'S Hospital Medical CenterComment on above: Performed By: #### UAMIC #### [facility] [address] [place] [address] Dr. Aury VazquezCrystals LM Nom (Urine sed)NONE SEENNormalNONE SEENCincinnati Children'S Hospital Medical CenterComment on above:Performed By: #### UAMIC #### [facility] [address] [place] [address] Dr. Jeffers ChangEpithelial cells LM Ql (Urine sed)RARENormalNONE SEEN /RARECincinnati Children'S Hospital Medical CenterComment on above:Performed By: #### UAMIC #### [facility] [address] [address] [address] Aury VazquezGlucose Ql (U)NegativeNormalNEGATIVECincinnati Children'S Hospital Medical CenterComment on above:Performed By: #### UAMIC #### [facility] [address] [address] [address] Aury VazquezHemoglobin Ql (U)NegativeNormalNEGATIVECincinnati Children'S Hospital [facility] Center Comment on above:Performed By: #### UAMIC #### [facility] [address] [place] [address] Dr. Aury VazquezKetones Ql (U)NegativeNormalNEGATIVECincinnati Children'S Hospital Medical CenterComment on above:Performed By: #### UAMIC #### [facility] [address] [place] [address] Dr. Aury VazquezLEUKOCYTESNegativeNormalNEGATIVEThe [facility] HospitalComment on above:Performed By: #### UAMIC #### [facility] [address] [place] [address] Dr. Aury VazquezMUCOUSTAN SEENNormalNONE SEENThe [facility] HospitalComment on above:Performed By: #### UAMIC #### [facility] Laboratory [address] [place] [address] Dr. Aury Siddiquitrite Ql (U)NegativeNormalNEGATIVEThe The Jewish HospitalComment on above:Performed By: #### UAMIC #### [facility] [address] [place] [address] Dr. Aury VazquezpH (U)5.5 [pH]Normal5-9The The [facility] HospitalComment on above: Performed By: #### UAMIC #### [facility] [address] [place] [address] Dr. Aury VazquezRBCNONE SEENAbnormal0-2The The [facility] HospitalComment on above: Performed By: #### UAMIC #### [facility] [address] [place] [address] Dr. Aury VazquezSPEC GRAVITY1.730Yqbrjh2.005-<=1.025The The Jewish HospitalComment on above:Performed By: #### UAMIC #### [facility] [address] [place] [address] Dr. Aury Patterson PROTEINNegativeNormalNEGATIVE/ TRACEThe [facility] Comment on above:Performed By: #### UAMIC #### [facility] [address] [place] [address] Dr. Aury Mendesbilinogen Qn (U)0.2 {Pj'U}/dLNormal0.2 - 1.0The The Jewish HospitalComment on above:Performed By: #### UAMIC #### [facility] [address] [place] [address] Dr. Aury VazquezWBCNONE SEENNormalNONE SEENCincinnati Children'S Hospital Medical CenterComment on above: Performed By: #### UAMIC #### [facility] [address] [place] [address] Dr. Aury Vazquez Vital Signs Date TimeVital SignValuePerforming BpksotnreRqtmabfs44-62-1510 15:09-0500Body mass index (BMI) [Ratio]41.8 kg/m2Lisa Peterhholz [employer]URN SE[employer] Work Phone: [facility] CenterEmvfzemfil36-69-0187 15:09-0500Body temperature 98.8 [degF]Rimma Aichholz TURN SEWER Work Phone: [phone] [place], [place] [address]Danwtnvzfa96-86-7427 15:09-0500Body aorwbm437.48 kgLisa Aichholz TURN SEWER Work Phone: [facility] CenterGqkqjwtwkg51-48-5700 15:09-0500Diastolic blood ywnfraua08 mm[Hg]Rimma Aichholz TURN SE[employer]ER Work Phone: [facility] CenterLrysikucbu51-20-2020 15:09-0500Heart rate87 /min Rimma Aichholz [employer] Work Phone: [facility] CenterCjwskqejge04-50-5200 15:09-0500Respiratory rate18 /minLisa Aichholz TURN SE[employer]ER Work Phone: [facility] CenterVlnxvpsjvw10-58-8459 15:09-5860MpC4% (BldA) [Mass fraction]97 %Rimma Aichholz [employer] SE[employer] Work Phone: [facility] CenterHpkycpqfdg49-77-9412 15:09-0500Systolic blood mm[Hg]Rimma Aichholz TURN SE[employer]ER Work Phone: [facility] CenterXoaikcydnn90-40-1584 15:27-0400Body loryfe388.6 cmLisa Aichholz TURN SE[employer]ER Work Phone: [facility] CenterAibqjmlclg37-14-6333 15:27-0400Body mass index (BMI) [Ratio]39.9 kg/m2Lisa Aichholz TURN SE[employer]ER Work Phone: noSt. [facility] HospitalDqijcfpjpy69-68-5705 15:27-0400Body temperature 97.81 [degF]Rimam Smithjabari TURN SEWER Work Phone: noSt. [facility] Children's HospitalRgqkjgnyib08-83-6362 15:27-0400Body qsepqv624.13 kgRimma Del Realmario alberto TURN SE[employer]ER Work Phone: noSt. [facility]'s HospitalQhlxofymwm99-70-4767 15:27-0400Diastolic blood qapczxwv66 mm[Hg]Rimma Smithz TURN SEWER Work Phone: noSt. [facility]'s HospitalXvklkfvuxa90-41-4000 15:27-0400Heart rate68 /min Rimma Gtholz TURN SE[employer] Work Phone: noSt. [facility] Children's HospitalPanygseyyo99-17-5548 15:27-0400Respiratory rate18 /minRimma Del Realmario alberto TURN SEWER Work Phone: noSt. Louis Children's HospitalBstxngmndq69-47-9380 15:27-3168TrB5% (BldA) [Mass fraction]94 %Rimma Garcia TURN SE[employer]ER Work Phone: noSt. Louis Children's HospitalOgkjreanxw10-94-3118 15:27-0400Systolic blood parkdjnk210 mm[Hg]Rimma Smithz TURN SEWER Work Phone: [facility] Encounters Encounter DateEncounter TypeCare ProviderFacilityStart: 04-20-2025 End: 86-22-1393OpzhnlCoxz Peterdanielmario alberto TURN SEWER Work Phone: [facility] CWM FMComment on above:Mild persistent asthma without complication (HCC); Primary hypertension ; Attention deficit hyperactivity disorder (ADHD), predominantly inattentive type ; Hypertriglyceridemia ; Type 2 diabetes mellitus without complications ([facility])Start: 12-16-2024 End: 49-74-5686UdmdsmSrno Sarahz TURN SEWER Work Phone: [facility] FMComment on above:Type 2 diabetes mellitus without complications (CMS/HCC)Start: 12-01-2024 End: 03-68-1970zzbbgviaiuAQLI AICHHOLZNot AvailableStart: 12-01-2024 End: 35-71-3843Jpxcxm outpatient visit 25 wandaRimma Garcia TURN SEWER Work Phone: [facility] FMComment on above:Type 2 diabetes mellitus without complications (CMS/HCC) (Primary Dx); Morbid (severe) obesity due to excess calories (CMS/HCC); Essential (primary) hypertension (CMS/HCC); Body mass index (BMI) 39.0-39.9, adult; Obstructive sleep apnea (adult) (pediatric); Attention deficit hyperactivity disorder (ADHD), predominantly inattentive type (CMS/HCC); Hypertriglyceridemia (CMS/HCC); Moderate persistent asthma without complication (CMS/HCC); Primary hypertension (CMS/HCC); Mild persistent asthma without complication (CMS/HCC)Start: 12-01-2024 End: 39-00-4383Pvqscr flowsheetRimma Del Realholz TURN SEWER Work Phone: [facility] FMStart: 12-01-2024 End: 20-32-0209Cgooji flowsheetRimma Del Realholz TURN SEWER Work Phone: [facility] FMStart: 08-13-2024 End: 87-37-4382AnzixtQjbw Peterhholz TURN SEWER Work Phone: [facility] FMComment on above:Type 2 diabetes mellitus without complication, without long-term current use of insulin (CMS/HCC) (P rimary Dx)Start: 07-27-2024 End: 83-82-7812AhjbapYxnk Aichholz TURN SEWER Work Phone: noMS CWM FMComment on above:Attention deficit hyperactivity disorder (ADHD), predominantly inattentive type (CMS/HCC) (Primary Dx)Start: 07-07-2024 End: 39-14-5694LmcmftFnfx Aichholz TURN SEWER Work Phone: noMS CWM FMComment on above:Type 2 diabetes mellitus without complication, without long-term current use of insulin (CMS/HCC) (P rimary Dx)Start: 07-06-2024 End: 22-88-6927Lwsrhhefb Result EncounterLisa Peterhholz TURN SEWER Work Phone: [facility] External Department UnsolicitedStart: 07-06-2024 End: 80-79-4632Xscbzclvb Result EncounterLisa Gtholz TURN SEWER Work Phone: [facility] Department UnsolicitedStart: 06-29-2024 End: 42-44-9695Nviykk outpatient visit 25 minutesLisa Sarahz TURN SEWER Work Phone: [facility] FMComment on above:Attention deficit hyperactivity disorder (ADHD), predominantly inattentive type (CMS/HCC) (Primary Dx); Morbid (severe) obesity due to excess calories (CMS/HCC); Obstructive sleep apnea (adult) (pediatric); Body mass index (BMI) 39.0-39.9, adult; Primary hypertension (CMS/HCC); Type 2 diabetes mellitus without complication, without long-term current use of insulin (CMS/HCC); Mild persistent asthma without complication (CMS/HCC); Hypertriglyceridemia (CMS/HCC)Start: 06-29-2024 End: 89-97-0653svsodoqsqeUYFR AICHHOLZNot AvailableStart: 06-29-2024 End: 76-95-6739Sqhuya flowsheetLisa Aichholz TURN SEWER Work Phone: [facility] FMStart: 06-29-2024 End: 06-65-3799Ecmkju flowsheetLisa Aichholz TURN SEWER Work Phone: [facility] FMStart: 06-08-2024 End: 41-22-3148RwibdfWbjw Aichholz TURN SEWER Work Phone: [facility] FMComment on above:Attention deficit hyperactivity disorder (ADHD), predominantly inattentive type (CMS/HCC) (Primary Dx)Start: 37-68-2169Seyyprt encounter procedureLisa Sarahz TURN SEWER Work Phone: [facility] HealthcareStart: 03-25-2024 End: 93-32-2517sybwnpmatoFZIP AICHHOLZNot AvailableStart: 03-02-2023 End: 38-22-5432mltedwpfwpSIC RIMMA RADHAFacility:E9Cdnlu: 03-01-2023 End: 81-25-9630mixonaknptNGO RIMMA GARCIAFacility:H1 Procedures DateProcedureProcedure DetailPerforming ClinicianStart: 08-86-5095Dfyemzemue glycosylated p4qDfwuRimma Garcia TURN SEWER Work Phone: Start: 96-22-4248OZW CBC WITH AUTO DIFFLisa Radha TURN SEWER Work Phone: Plan of Treatment DateCare ActivityDetailAuthorStart: 97-00-5272Oltlw screening for protein Diabetes: Urine Protein ScreeningNOAK HealthcareStart: 61-05-3088Ubxepibq screeningDiabetes: Retinopathy ScreeningNOAK HealthcareStart: 06-21-2025 Influenza vaccinationInfluenza Vaccine (#1)[facility] HealthcareStart: 03-25-2025 Medicare Annual Wellness (AWV)Medicare Annual Wellness (AWV)[facility] Start: 03-02-2025 End: 53-97-0433Wisgpoa encounter /13/2025 3:20 PM EDT Office Visit [facility] [address] [place] [address] Rimma Garcia, AUDI [address] [place] [id number] [facility] FMStart: 83-90-0119Jkyhyjskkt A1c measurement Diabetes: Hemoglobin Z0DXZGJ HealthcareStart: 48-60-4729Mocixhotp vaccination Influenza Vaccine (#1)[facility] HealthcareComment on above:Postponed from 06/21/2024 (Patient Refused)Start: 78-83-6583Xriafbqrzv A1c measurementDiabetes: Hemoglobin L1GZJGV HealthcareStart: 12-01-2024 End: 04-76-6171Gbanjgmtwears metabolic 2000 panel - Serum or PlasmaComprehensive metabolic panel Lab Routine Essential (primary) hypertension (CMS/HCC) Type 2 diabetes mellitus without complications (CMS/HCC) Hypertriglyceridemia (CMS/HCC) Expected: 12/01/2024 (Approximate), Expires: 12/01/2025[facility] HealthcareComment on above:Expected: 12/01/2024 (Approximate), Expires: 12/01/2025Start: 12-01-2024 End: 10-85-8096Mboja 1996 panel - Serum or PlasmaLipid panel Lab Routine Type 2 diabetes mellitus without complications (CMS/HCC) Hypertriglyceridemia (CMS/HCC) Expected: 12/01/2024 (Approximate), Expires: 12/01/2025[facility] Work Phone: Comment on above:Expected: 12/01/2024 (Approximate), Expires: 12/01/2025Start: 65-86-3408Tldqmtltqb A1c measurementDiabetes: Hemoglobin R4TFCNPSaint John's Regional Health CenterStart: 09-28-2024 End: 36-31-6717Rilzpqw encounter msbwtidky03/09/2024 1:20 PM EST Office Visit [facility] [address] [place] [phone] Rimma Garcia NP [address] [place] [phone] [facility] FMStart: 06-29-2024 End: 78-67-4218Fmsfybm encounter procedureNOPAWHUSKA HOSPITAL – PA[place] FMComment on above:Morbid (severe) obesity due to excess calories (CMS/HCC); Obstructive sleep apnea (adult) (pediatric); Body mass index (BMI) 39.0-39.9, adultStart: 14-26-7227Xlfkinhnr vaccination Influenza Vaccine (#1)[facility] CenterStart: 12-25-0343Hdxfz screening for proteinDiabetes: Urine Protein ScreeningSaint John's Regional Health CenterStart: 1987 Hemoglobin A1c measurementDiabetes: Hemoglobin F8EPPAKSaint John's Regional Health Center Payers DatePayer CategoryPayerPolicy [id number]UNITED HEALTHCARE MEDICARE [employer] [facility] [place] [id number] 2023-Present [address] [place] [id number] 2023Medicare (Managed Care)[employer] MEDICARE Member Subscriber Plan / Payer (Effective 2023-Present) Name: Balta Boothe Relation to Subscriber: Self Name: Balta Boothe Payer ID: [id number] (NAIC) Group ID: Not on file Type: Not on file Address: [address] [id number] 2023Medicare [id number] [id number]. [id number] [id number] 1960Medicare [id number] Social History DateTypeDetailFacilityStart: 84-50-1931Ntvlgua smoking status NHISNever smoked tobaccoNOMS HealthcareStart: 40-37-3587Lpdzyne use and exposureSmokeless tobacco non-userNOMS HealthcareStart: 06-29-2024 End: 14-77-6292Xfntkjlxo beverage intakeEx-drinker (finding)[facility] Start: 03-25-2024 End: 93-48-6591Jjegzsa of Social functionNOMS HealthcareStart: 03-25-2024 End: 54-55-6566Zztbjgn use panelNOMS HealthcareStart: 25-20-5044Cwudmzp Comment caffine: tea daily and soda 1 weeklySaint John's Regional Health CenterStart: 69-26-0632Tvx assigned at birthNot on [facility] Clinical Notes 06-29-2024 to 12-01-2024 Note Date & YubzXzeqMlblwpsj16-12-2972 History of Present illness Narrative* ROBERT BALL - 12/01/2024 3:00 PM EST Mom states that the generic of adderall is what the insurance will cover. * Rimma Garcia NP - 12/01/2024 3:00 PM EST Images from the original note were not included. Balta Boothe is a 39 y.o. male presents with chief complaint of ADHD HPI: ADHD: is taking strattera, has been out for a month or so as he did not have any more refills. Doesfeel that it is helpful, perhaps not as well as adderall did but is helpful Hypertension This is a chronic problem. The current episode started more than 1 year ago. The problem is unchanged. The problem is controlled. Associated symptoms include shortness of breath. Pertinent negatives include no chest pain, malaise/fatigue, palpitations or peripheral edema. There are no associated agents to hypertension. Risk factors for coronary artery disease include diabetes mellitus, dyslipidemia, male gender, obesity and sedentary lifestyle. Past treatments include DORIE inhibitors and calciumchannel blockers. The current treatment provides significant improvement. There are no compliance problems. There is no history of kidney disease, CAD/ND or CVA. Diabetes He presents for his follow-up diabetic visit. He has type 2 diabetes mellitus. There are no hypoglycemic associated symptoms. Pertinent negatives for hypoglycemia include no dizziness, nervousness/anxiousness, seizures or tremors. Pertinent negatives for diabetes include no chest pain, no polyphagia and no polyuria. There are no hypoglycemic complications. Symptoms are improving. Pertinent negatives for diabetic complications include no CVA, heart disease, nephropathy or peripheral neuropathy. Risk factors for coronary artery disease include diabetes mellitus, dyslipidemia, hypertension, obesity, sedentary lifestyle and male sex. Current diabetic treatment includes oral agent (triple therapy). He is compliant with treatment most of the time. He has not had a previous visit with a dietitian. His overall blood glucose range is 140-180 mg/dl. An DORIE inhibitor/angiotensin II receptor josh is being taken. He does not see a floor manager.Eye exam is current. SUBJECTIVE: MEDICATIONS: Current Outpatient Medications Medication Instructions albuterol HFA 90 mcg/act inhaler 2 puffs, Inhalation, Every 6 hours PRN amLODIPine (NORVASC) 5 mg, Oral, Daily aspirin 81 mg, Oral, Daily atomoxetine (STRATTERA) 40 mg, Oral, Daily, Swallow capsule whole; do not open. If opened accidentally, do not touch eyes; wash hands immediately (product is an eye irritant). atorvastatin (LIPITOR) 10 mg, Oral, Every evening dapagliflozin (FARXIGA) 10 mg, Oral, Daily fenofibrate micronized (LOFIBRA) 134 mg, Oral, Daily lisinopril 40 mg, Oral, Daily semaglutide (RYBELSUS) 14 mg, Oral, Daily before breakfast ALLERGIES: No Known Allergies REVIEW OF SYMPTOMS: Review of Systems Constitutional: Negative for activity change, appetite change, malaise/fatigue and unexpected weight change. HENT: Negative for ear pain, nosebleeds, sneezing, trouble swallowing and voice change. Eyes: Negative for pain, discharge and visual disturbance. Respiratory: Positive for shortness of breath and wheezing. Negative for apnea and chest tightness. Cardiovascular: Negative for chest pain, palpitations and leg swelling. Gastrointestinal: Negative for abdominal distention, blood in stool, constipation and diarrhea. Genitourinary: Negative for decreased urine volume, difficulty urinating, dysuria and hematuria. Skin: Negative for color change. Neurological: Negative for dizziness, tremors and seizures. Psychiatric/Behavioral: Negative for agitation, decreased concentration, hallucinations, self-injury and suicidal ideas. The patient is not nervous/anxious. Hematological: Negative for adenopathy. Does not bruise/bleed easily. Endocrine: Negative for cold intolerance, heat intolerance, polyphagia and polyuria. Allergic/Immunologic: Negative for environmental allergies and food allergies. PAST MEDICAL HISTORY Past Medical History: Diagnosis Date Mild persistent asthma without complication ([facility]) 10/01/2023 History reviewed. No pertinent surgical history. family history is not on file. OBJECTIVE: Visit Vitals BP 132/88 (BP Location: Left arm, Patient Position: Sitting, BP Cuff Size: Large adult) Pulse 87 Temp 98.8 F (Temporal) Resp 18 Wt 259 lb SpO2 97% BMI 41.80 kg/m Smoking Status Never BSA 2.33 m Physical Exam Vitals and nursing note reviewed. Constitutional: General: He is not in acute distress. Appearance: Normal appearance. He is obese. He is not ill-appearing, toxic- appearing or diaphoretic. HENT: Head: Normocephalic. Right Ear: External ear normal. Left Ear: External ear normal. Nose: Nose normal. Mouth/Throat: Mouth: Mucous membranes are moist. Pharynx: Oropharynx is clear. Eyes: Extraocular Movements: Extraocular movements intact. Conjunctiva/sclera: Conjunctivae normal. Neck: Vascular: No carotid bruit. Cardiovascular: Rate and Rhythm: Normal rate and regular rhythm. Pulses: Normal pulses. Heart sounds: Normal heart sounds. Pulmonary: Effort: Pulmonary effort is normal. No respiratory distress. Breath sounds: Wheezing present. No rhonchi. Abdominal: General: Bowel sounds are normal. There is no distension. Palpations: Abdomen is soft. There is no mass. Tenderness: There is no abdominal tenderness. There is no guarding or rebound. Comments: +protuberant Musculoskeletal: Cervical back: Neck supple. Right lower leg: No edema. Left lower leg: No edema. Lymphadenopathy: Cervical: No cervical adenopathy. Skin: General: Skin is warm and dry. Capillary Refill: Capillary refill takes 2 to 3 seconds. Neurological: General: No focal deficit present. Mental Status: He is alert. Psychiatric: Mood and Affect: Mood normal. Behavior: Behavior normal. Thought Content: Thought content normal. Judgment: Judgment normal. ASSESSMENT AND PLAN: Follow up in about 3 months (around 02/28/2025) for Recheck. Problem List Items Addressed This Visit Attention deficit hyperactivity disorder (ADHD), predominantly inattentive type (CMS/HCC) Current meds: strattera, will continue to use this in conjunction with his chronic health conditions PHQ 9= 10 NALINI 7 =9 Relevant Medications atomoxetine (Strattera) 40 MG capsule Essential (primary) hypertension (CMS/HCC) Please check blood pressure daily and record DASH diet Limit caffeine Take medication as directed Contact office if chest pain, pressure, dizziness, shortness of breath, swelling legs Recommend slow position changes Current med: amlodipine, lisinopril Relevant Medications aspirin 81 MG EC tablet Other Relevant Orders Comprehensive metabolic panel Moderate persistent asthma without complication (CMS/HCC) Albuterol inhaler as needed Hypertriglyceridemia (CMS/HCC) Current meds: statin, lofibra Check labs yearly and prn dose changes Relevant Orders Lipid panel Comprehensive metabolic panel Type 2 diabetes mellitus without complications (CMS/HCC) - Primary Check blood sugars daily, notify if <70 [...] carbohydrates, and simple sugars. Current meds: statin, dorie, farxiga, and rybelsus Increase farxiga to 10mg and rybelsus to 14mg A1c: 10% 12/01/24 Relevant Medications dapagliflozin (Farxiga) 10 MG semaglutide (Rybelsus) 14 MG tablet aspirin 81 MG EC tablet Other Relevant Orders POCT glycosylated hemoglobin (Hb A1C) docked device (Completed) Lipid panel Comprehensive metabolic panel Obstructive sleep apnea (adult) (pediatric) You have a diagnosis of obstructive sleep [...] that supplies your machine and tubing/filters etc:in [place] Doctor that manages your TRISTON: Rimma Body mass index (BMI) 39.0-39.9, adult Morbid (severe) obesity due to excess calories (CMS/HCC) Discussed with patient their BMI (actual, verses recommended). We have also discussed lifestyle modifications: attempts to perform physical activity as chronic conditions allow, also to monitor dietary intake: increasing protein/fruits/veggies and lowering carb intake (unless contraindicated). Limit sodas, juices, and sugary drinks. * Rimma Garcia NP - 12/01/2024 7:57 AM ESTAssociated Problem(s): Moderate persistent asthma without complication (CMS/HCC) Albuterol inhaler as needed * Rimma Garcia NP - 12/01/2024 7:56 AM ESTAssociated Problem(s): Hypertriglyceridemia (CMS/HCC) Current meds: statin, lofibra Check labs yearly and prn dose changes * Rimma Garcia NP - 12/01/2024 7:56 AM ESTAssociated Problem(s): Attention deficit hyperactivity disorder (ADHD), predominantly inattentive type (CMS/HCC) Current meds: niall, will continue to use this in conjunction with his chronic health conditions PHQ 9= 10 NALINI 7 =9 * Rimma Garcia NP - 12/01/2024 7:55 AM ESTAssociated Problem(s): Type 2 diabetes mellitus without complications (CMS/HCC) Check blood sugars daily, notify if <70 [...] carbohydrates, and simple sugars. Current meds: statin, dorie, farxiga, and rybelsus Increase farxiga to 10mg and rybelsus to 14mg A1c: 10% 12/01/24 * Rimma Garcia NP - 12/01/2024 7:55 AM ESTAssociated Problem(s): Morbid (severe) obesity due to excess calories (CMS/[facility]) Discussed with patient their BMI (actual, verses recommended). We have also discussed lifestyle modifications: attempts to perform physical activity as chronic conditions allow, also to monitor dietary intake: increasing protein/fruits/veggies and lowering carb intake (unless contraindicated). Limit sodas, juices, and sugary drinks. * Rimma Garcia NP - 12/01/2024 7:54 AM ESTAssociated Problem(s): Obstructive sleep apnea (adult) (pediatric) You have a diagnosis of obstructive sleep [...] that supplies your machine and tubing/filters etc:in [place] Doctor that manages your TRISTON: Rimma * Rimma Garcia NP - 12/01/2024 7:54 AM ESTAssociated Problem(s): Essential (primary) hypertension ([facility]) Please check blood pressure daily and record DASH diet Limit caffeine Take medication as directed Contact office if chest pain, pressure, dizziness, shortness of breath, swelling legs Recommend slow position changes Current med: amlodipine, lisinopril documented in this [facility]02-11-2025 Instructions* Patient Instructions* Rimma Garcia NP - 12/01/2024 3:00 PM EST Increase the faxiga: from 5mg to 10mg daily Increase rybelsus from 7mg to 14mg Please get labs done documented in this encounterSaint John's Regional Health CenterBmdmrdxpgt30-05-2589 History of Present illness Narrative* Rimma Garcia NP - 06/29/2024 5:22 PM EDTAssociated Problem(s): Attention deficit hyperactivity disorder (ADHD), predominantly inattentive ty pe ([facility]/HCC) Has taken ADHD meds for years, trial off of them in the last 2 years, significant worsening in symptoms We will continue on med Needs a PA for his adderall XR as insurance is wanting a new PA Fu in 3 months * Rimma Garcia NP - 06/29/2024 5:21 PM EDTAssociated Problem(s): Type 2 diabetes mellitus without complication, without long-term current useof insulin ([facility]) Check labs Is currently not taking any metfromin?? Recommend carb control as well as weight loss and physical activity * Rimma Garcia NP - 06/29/2024 5:19 PM EDTAssociated Problem(s): Primary hypertension (CMS/HCC) At goal, no changes in med dose for pt Cont PAP use, as well as recommend weight loss Over due for labs * Rimma Garcia NP - 06/29/2024 5:18 PM EDTAssociated Problem(s): Mild persistent asthma without complication (CMS/HCC) Continue prn use of albuterol And avoidance of known triggers * Rimma Garcia NP - 06/29/2024 4:02 PM EDTAssociated Problem(s): Obstructive sleep apnea (adult) (pediatric) Compliant with PAP use Typically hours per night * Rimma Garcia NP - 06/29/2024 3:20 PM EDT Images from the original note were not included. Balta Boothe is a 38 y.o. male presents with chief complaint of No chief complaint on file. HPI: TRISTON: doing well on use of PAP Hypertension This is a chronic problem. The current episode started more than 1 year ago. The problem is unchanged. The problem is controlled. Pertinent negatives include no anxiety, blurred vision, chest pain, headaches, neck pain, palpitations, peripheral edema, PND or shortness of breath. There are no associated agents to hypertension. Risk factors for coronary artery disease include dyslipidemia, male gender, obesity and sedentary lifestyle. Past treatments include calcium channel blockers and DORIE inhibitors. The current treatment provides significant improvement. There are no compliance problems. There is no history of angina, kidney disease, CAD/ND, PVD or retinopathy. ADHD This is a chronic problem. The current episode started more than 1 year ago. The problem occurs daily. The problem has been gradually worsening. Pertinent negatives include no abdominal pain, arthralgias, chest pain, congestion, fatigue, headaches, myalgias, neck pain, rash, sore throat, swollen glands, vertigo or weakness. Nothing aggravates the symptoms. Treatments tried: adderall XR. The treatment provided significant relief. SUBJECTIVE: MEDICATIONS: Current Outpatient Medications Medication Instructions albuterol HFA 90 mcg/act inhaler 2 puffs, Inhalation, Every 6 hours PRN amLODIPine (NORVASC) 5 mg, Oral, Daily amphetamine-dextroamphetamine XR (Adderall XR) 30 MG 24 hr capsule 30 mg, Oral, Daily, Do not crushor chew. atorvastatin (LIPITOR) 10 mg, Oral, Every evening fenofibrate micronized (LOFIBRA) 134 mg, Oral, Daily lisinopril 40 mg, Oral, Daily ALLERGIES: No Known Allergies REVIEW OF SYMPTOMS: Review of Systems Constitutional: Negative for activity change, appetite change, fatigue and unexpected weight change. HENT: Negative for congestion, ear pain, nosebleeds, sneezing, sore throat, trouble swallowing and voice change. Eyes: Negative for blurred vision, pain, discharge and visual disturbance. Respiratory: Negative for apnea, chest tightness, shortness of breath and wheezing. Cardiovascular: Negative for chest pain, palpitations, leg swelling and PND. Gastrointestinal: Negative for abdominal distention, abdominal pain, blood in stool, constipation and diarrhea. Genitourinary: Negative for decreased urine volume, difficulty urinating, dysuria and hematuria. Musculoskeletal: Negative for arthralgias, myalgias and neck pain. Skin: Negative for color change and rash. Neurological: Negative for dizziness, vertigo, tremors, seizures, weakness and headaches. Psychiatric/Behavioral: Positive for decreased concentration. Negative for agitation, hallucinations, self-injury and suicidal ideas. The patient is not nervous/anxious. Hematological: Negative for adenopathy. Does not bruise/bleed easily. Endocrine: Negative for cold intolerance, heat intolerance, polydipsia and polyuria. Allergic/Immunologic: Negative for environmental allergies and food allergies. PAST MEDICAL HISTORY Past Medical History: Diagnosis Date Mild persistent asthma without complication ([facility]) 10/01/2023 History reviewed. No pertinent surgical history. family history is not on file. OBJECTIVE: Visit Vitals BP (!) 146/106 (BP Location: Left arm, Patient Position: Sitting, BP Cuff Size: Adult long) Pulse 68 Temp 97.8 F (Temporal) Resp 18 Ht 5' 6 Wt 247 lb 3.2 oz SpO2 94% BMI 39.90 kg/m Smoking Status Never BSA 2.28 m Physical Exam Vitals and nursing note reviewed. Constitutional: Appearance: Normal appearance. He is obese. HENT: Head: Normocephalic. Right Ear: External ear normal. Left Ear: External ear normal. Nose: Nose normal. Mouth/Throat: Mouth: Mucous membranes are moist. Pharynx: Oropharynx is clear. Eyes: Extraocular Movements: Extraocular movements intact. Conjunctiva/sclera: Conjunctivae normal. Neck: Vascular: No carotid bruit. Cardiovascular: Rate and Rhythm: Normal rate and regular rhythm. Pulses: Normal pulses. Heart sounds: Normal heart sounds. Pulmonary: Effort: Pulmonary effort is normal. Breath sounds: Normal breath sounds. No wheezing, rhonchi or rales. Chest: Chest wall: No tenderness. Abdominal: General: Bowel sounds are normal. Palpations: Abdomen is soft. Musculoskeletal: Cervical back: Neck supple. Right lower leg: No edema. Left lower leg: No edema. Lymphadenopathy: Cervical: No cervical adenopathy. Skin: General: Skin is warm and dry. Capillary Refill: Capillary refill takes 2 to 3 seconds. Neurological: General: No focal deficit present. Mental Status: He is alert. Psychiatric: Mood and Affect: Mood normal. Behavior: Behavior normal. Thought Content: Thought content normal. Judgment: Judgment normal. ASSESSMENT AND PLAN: No follow-ups on file. Problem List Items Addressed This Visit Mild persistent asthma without complication ([facility]/HCC) Continue prn use of albuterol And avoidance of known triggers Attention deficit hyperactivity disorder (ADHD), predominantly inattentive type ([facility]) - Primary Has taken ADHD meds for years, trial off of them in the last 2 years, significant worsening in symptoms We will continue on med Needs a PA for his adderall XR as insurance is wanting a new PA Fu in 3 months Primary hypertension ([facility]) At goal, no changes in med dose for pt Cont PAP use, as well as recommend weight loss Over due for labs Type 2 diabetes mellitus without complication, without long-term current use of insulin ([facility]/HCC) Check labs Is currently not taking any metfromin?? Recommend carb control as well as weight loss and physical activity Obstructive sleep apnea (adult) (pediatric) Compliant with PAP use Typically hours per night Body mass index (BMI) 39.0-39.9, adult Morbid (severe) obesity due to excess calories (CMS/HCC) [facility] Diagnosis Attention deficit hyperactivity disorder (ADHD), predominantly inattentive type (CMS/HCC)- Primary documented in this encounter [facility]* Diagnosis Encounter for initial annual wellness visit (AWV) in Medicare patient- Primary Attention deficit hyperactivity disorder (ADHD), predominantly inattentive type (CMS/HCC) Hypertriglyceridemia (CMS/HCC) Pure hyperglyceridemia Type 2 diabetes mellitus without complication, without long-term current use of insulin (CMS/HCC) Primary hypertension (CMS/HCC) Unspecified essential hypertension [place] (obstructive sleep apnea) Obstructive sleep apnea (adult) (pediatric) Obesity (BMI 30-39.9) Attention deficit hyperactivity disorder (ADHD), predominantly inattentive type (CMS/HCC)- Primary Morbid (severe) obesity due to excess calories (CMS/HCC) Obstructive sleep apnea (adult) (pediatric) Body mass index (BMI) 39.0-39.9, adult Primary hypertension (CMS/HCC) Unspecified essential hypertension Type 2 diabetes mellitus without complication, without long-term current use of insulin (CMS/HCC) Mild persistent asthma without complication (CMS/HCC) Hypertriglyceridemia (CMS/HCC) Pure hyperglyceridemia Type 2 diabetes mellitus without complication, without long-term current use of insulin (CMS/HCC)- Primary documented in this encounter [facility]* Diagnosis Type 2 diabetes mellitus without complication, without long-term current use of insulin (CMS/HCC)- Primary documented in [facility] encounter [facility]* Diagnosis Type 2 diabetes mellitus without complication, without long-term current use of insulin (CMS/HCC)- Primary documented in this encounter [facility]* Diagnosis Attention deficit hyperactivity disorder (ADHD), predominantly inattentive type (CMS/HCC)- Primary documented in this encounter [facility]* Diagnosis Attention deficit hyperactivity disorder (ADHD), predominantly inattentive type (CMS/HCC)- Primary Morbid (severe) obesity due to excess calories (CMS/HCC) Obstructive sleep apnea (adult) (pediatric) Body mass index (BMI) 39.0-39.9, adult Primary hypertension (CMS/HCC) Unspecified essential hypertension Type 2 diabetes mellitus without complication, without long-term current use of insulin (CMS/HCC) Mild persistent asthma without complication (CMS/HCC) Hypertriglyceridemia (CMS/HCC) Pure hyperglyceridemia documented in [facility]* Diagnosis Encounter for initial annual wellness visit (AWV) in Medicare patient- Primary Attention deficit hyperactivity disorder (ADHD), predominantly inattentive type (CMS/HCC) Hypertriglyceridemia (CMS/HCC) Pure hyperglyceridemia Type 2 diabetes mellitus without complication, without long-term current use of insulin (CMS/HCC) Primary hypertension (CMS/HCC) Unspecified essential hypertension [place] (obstructive sleep apnea) Obstructive sleep apnea (adult) (pediatric) Obesity (BMI 30-39.9) Attention deficit hyperactivity disorder (ADHD), predominantly inattentive type (CMS/HCC)- Primary Morbid (severe) obesity due to excess calories (CMS/HCC) Obstructive sleep apnea (adult) (pediatric) Body mass index (BMI) 39.0-39.9, adult Primary hypertension (CMS/HCC) Unspecified essential hypertension Type 2 diabetes mellitus without complication, without long-term current use of insulin (CMS/HCC) Mild persistent asthma without complication (CMS/HCC) Hypertriglyceridemia (CMS/HCC) Pure hyperglyceridemia Type 2 diabetes mellitus without complications (CMS/HCC)- Primary Morbid (severe) obesity due to excess calories (CMS/HCC) Essential (primary) hypertension (CMS/HCC) Unspecified essential hypertension Body mass index (BMI) 39.0-39.9, adult Obstructive sleep apnea (adult) (pediatric) Attention deficit hyperactivity disorder (ADHD), predominantly inattentive type (CMS/HCC) Hypertriglyceridemia (CMS/HCC) Pure hyperglyceridemia Moderate persistent asthma without complication (CMS/HCC) Primary hypertension (CMS/HCC) Unspecified essential hypertension Mild persistent asthma without complication (CMS/HCC) documented in this encounter [facility]* Diagnosis Encounter for initial annual wellness visit (AWV) in Medicare patient- Primary Attention deficit hyperactivity disorder (ADHD), predominantly inattentive type (CMS/HCC) Hypertriglyceridemia (CMS/HCC) Pure hyperglyceridemia Type 2 diabetes mellitus without complication, without long-term current use of insulin (CMS/HCC) Primary hypertension (CMS/HCC) Unspecified essential hypertension [place] (obstructive sleep apnea) Obstructive sleep apnea (adult) (pediatric) Obesity (BMI 30-39.9) Attention deficit hyperactivity disorder (ADHD), predominantly inattentive type (CMS/HCC)- Primary Morbid (severe) obesity due to excess calories (CMS/HCC) Obstructive sleep apnea (adult) (pediatric) Body mass index (BMI) 39.0-39.9, adult Primary hypertension (CMS/HCC) Unspecified essential hypertension Type 2 diabetes mellitus without complication, without long-term current use of insulin (CMS/HCC) Mild persistent asthma without complication (CMS/HCC) Hypertriglyceridemia (CMS/HCC) Pure hyperglyceridemia Type 2 diabetes mellitus without complications (CMS/HCC)- Primary Morbid (severe) obesity due to excess calories (CMS/HCC) Essential (primary) hypertension (CMS/HCC) Unspecified essential hypertension Body mass index (BMI) 39.0-39.9, adult Obstructive sleep apnea (adult) (pediatric) Attention deficit hyperactivity disorder (ADHD), predominantly inattentive type (CMS/HCC) Hypertriglyceridemia (CMS/HCC) Pure hyperglyceridemia Moderate persistent asthma without complication (CMS/HCC) Primary hypertension (CMS/HCC) Unspecified essential hypertension Mild persistent asthma without complication (CMS/HCC) Type 2 diabetes mellitus without complications (CMS/HCC) documented in [facility] encounter [facility]* Diagnosis Encounter for initial annual wellness visit (AWV) in Medicare patient- Primary Attention deficit hyperactivity disorder (ADHD), predominantly inattentive type Hypertriglyceridemia Pure hyperglyceridemia Type 2 diabetes mellitus without complication, without long-term current use of insulin (HCC) Primary hypertension Unspecified essential hypertension [place] (obstructive sleep apnea) Obstructive sleep apnea (adult) (pediatric) Obesity (BMI 30-39.9) Attention deficit hyperactivity disorder (ADHD), predominantly inattentive type- Primary Morbid (severe) obesity due to excess calories (CMS-HCC) Obstructive sleep apnea (adult) (pediatric) Body mass index (BMI) 39.0-39.9, adult Primary hypertension Unspecified essential hypertension Type 2 diabetes mellitus without complication, without long-term current use of insulin (HCC) Mild persistent asthma without complication (HCC) Hypertriglyceridemia Pure hyperglyceridemia Type 2 diabetes mellitus without complications (HCC)- Primary Morbid (severe) obesity due to excess calories (CMS-HCC) Essential (primary) hypertension Unspecified essential hypertension Body mass index (BMI) 39.0-39.9, adult Obstructive sleep apnea (adult) (pediatric) Attention deficit hyperactivity disorder (ADHD), predominantly inattentive type Hypertriglyceridemia Pure hyperglyceridemia Moderate persistent asthma without complication (HCC) Primary hypertension Unspecified essential hypertension Mild persistent asthma without complication (HCC) Mild persistent asthma without complication (HCC) Primary hypertension Unspecified essential hypertension Attention deficit hyperactivity disorder (ADHD), predominantly inattentive type Hypertriglyceridemia Pure hyperglyceridemia Type 2 diabetes mellitus without complications (HCC) documented in this encounter [facility] Summary Purpose Family History No Family History Records FoundNo Family History Records Found Advance Directives No Advanced Directives Records FoundNo Advanced Directives Records Found Additional Source Comments (unrecognized sect ion and content) No Status Records FoundNo Status Records Found INFORMATION SOURCE (unrecogn ized section and content) DATE CREATED AUTHOR 03/02/2023 [facility] DATE CREATED AUTHOR AUTHOR'S ORGANIZ ATION 12/03/2024 [facility] EPIC Care Teams (unrecognized sec tion and content) Team MemberRelationshipSpecialtyStart DateEnd Date Anand Paul MD [address] [place] [phone] PCP - GeneralFamily Medicine03/25/24 Rimma Garcia NP [address] [place] [phone] Referring PhysicianNurse Practitioner05/15/23Team MemberRelationshipSpecialty Start DateEnd Date Anand Paul MD [address] [place] [phone] PCP - GeneralFamily Medicine03/25/24 Rimma Garcia NP [address] [place] [phone] Referring PhysicianNurse Practitioner05/15/23Team MemberRelationshipSpecialty Start DateEnd Date Anand Paul MD [address] [place] [phone] PCP - GeneralFamily Medicine03/25/24 Rimma Garcia NP [address] [place] [address] Referring PhysicianNurse Practitioner05/15/23Team MemberRelationshipSpecialty Start DateEnd Date Anand Paul MD [address] [place] [phone] [facility] - [facility]/25/24 Rimma Garcia NP [address] [place] [phone] Referring PhysicianNurse Practitioner05/15/23Team MemberRelationshipSpecialty Start DateEnd Date Anand Paul MD [address] [place] [phone] [facility] - [facility]/25/24 Rimma Garcia NP [address] [place] [phone] Referring PhysicianNurse Practitioner05/15/23Team MemberRelationshipSpecialty Start DateEnd Date Anand Paul MD [address] [place] [phone] PCP - Generalmi Medicine03/25/24 Rimma Garcia NP [address] [place] [phone] Referring PhysicianNurse Practitioner05/15/23Team MemberRelationshipSpecialty Start DateEnd Date Anand Paul MD [address] [place] [phone] PCP - GeneralFamily Medicine03/25/24 Rimma Garcia NP [address] [place] [address] Referring PhysicianNurse Practitioner05/15/23Te MemberRelationshipSpecialty Start DateEnd Date Anand Paul MD [address] [place] [phone] [facility] - [facility]/25/24 Rimma Garcia NP [address] [place] [phone] Referring PhysicianNurse Practitioner05/15/23Te MemberRelationshipSpecialty Start DateEnd Date Anand Paul MD [address] [place] [phone] PCP - Generalmily Medicine03/25/24 Rimma Garcia NP [address] [place] [phone] Referring PhysicianNurse Practitioner05/15/23Te MemberRelationshipSpecialty Start DateEnd Date Anand Paul MD [address] [place] [phone] PCP - GeneralFamily Medicine03/25/24 Rimma Garcia NP [address] [place] [address] Referring PhysicianNurse Practitioner05/15/23Team MemberRelationshipSpecialty Start DateEnd Date Anand Paul MD [address] [place] [address] PCP - GeneralFamily Medicine03/25/24 Rimma Garcia NP [address] [place] [address] Referring PhysicianNurse Practitioner05/15/23 Reason for Visit (unrecogniz ed section and content) ReasonCommentsADHD FOR RECORDS PERTAINING TO PATIENTS WHO ARE OR HAVE BEEN ENROLLED IN A CHEMICAL DEPENDENCY/SUBSTANCEABUSE PROGRAM, SOME INFORMATION MAY BE OMITTED. This clinical summary was aggregated from multiple sources. Caution should be exercised in using it in the provision of clinical care. This summary normalizes information from multiple sources, and as a consequence, information in this document may materially change the coding, format and clinical context of patient data. In addition, data may be omitted in some cases. CLINICAL DECISIONS SHOULD BE BASED ON THE PRIMARY CLINICAL RECORDS. [employer] [facility]. provides no warranty or guarantee of the accuracy or completeness of information in this document.
[2025-10-18 10:06] LABS: Glucose Urine UA >=1000 mg/dL (NEGATIVE)
[2025-10-18 10:16] LABS: Cast Seen? NONE SEEN #/LPF (NONE SEEN); Crystals Seen? None Seen #/HPF (None Seen)
[2025-10-18 10:21] LABS: Hematocrit 53.2 % (42.0-54.0); Hemoglobin 18.6 g/dL (14.0-18.0); Immature Granulocytes Abs Auto 0.05 10^3/uL (0.00-0.03); Immature Granulocytes Pct Auto 0.6 % (0.0-0.5); Lymphocytes Absolute Auto 2.0 10^3/uL (1.2-3.8); Mean Corpuscular HGB Conc 35.0 g/dL (29.9-35.2); Mean Corpuscular Hemoglobin 30.7 pg (25.9-34.0); Mean Corpuscular Volume 87.9 fL (80.0-94.0); Platelet Count 241 10^3/uL (150-450); Red Blood Count 6.05 10^6/uL (4.70-6.10); White Blood Count 8.1 10^3/uL (4.0-11.0)
[2025-10-18 11:00] LABS: Microalbum Creatinine Ratio Ur 256.0 mg/g (0.0-29.9)
[2025-10-18 11:12] LABS: Alanine Aminotransferase 54 U/L (16-63); Albumin Globulin Ratio 0.9; Albumin Level 3.5 g/dL (3.4-5.0); Alkaline Phosphatase 86 U/L (46-116); Anion Gap 14.6; Blood Urea Nitrogen 13.0 mg/dL (7.0-18.0); Calcium 9.1 mg/dL (8.5-10.1); Carbon Dioxide 25.5 mmol/L (21.0-32.0); Chloride 101 mmol/L (98-107); Cholesterol 309 mg/dL (<=200); Estimated GFR (African America >60 (>=60 mL/min/1.73m^2); Estimated GFR (Non-African Ame >60 (>=60 mL/min/1.73m^2); Globulin 4.1 g/dL; Glucose 285 mg/dL (74-106); HDL Cholesterol 34 mg/dL (40-60); Potassium 4.1 mmol/L (3.5-5.1); Sodium 137 mmol/L (136-145); Thyroid Stimulating Hormone 1.412 uIU/mL (0.358-3.740); Total Protein 7.6 g/dL (6.4-8.2); Triglycerides 1560 mg/dL (<=150); VLDL CHOLESTEROL 312.0 mg/dL
[2025-10-18 11:50] LABS: Aspartate Amino Transferase 16 U/L (15-37)
== END 2025-10-18 09:30 | disposition home or self-care (01) ==
LOC: LAB 09:32
PROVIDERS: PCP Nurse Practitioner; Visit Provider Nurse Practitioner
DX: E78.2 Mixed hyperlipidemia (principal); E11.9 Type 2 diabetes mellitus without complications; I10 Essential (primary) hypertension; J45.40 Moderate persistent asthma, uncomplicated; E66.01 Morbid (severe) obesity due to excess calories; G47.33 Obstructive sleep apnea (adult) (pediatric)
CPT/HCPCS: 36415; 80053; 80061; 81001; 82043; 82570; 83721; 84443; 85025